=== PATIENT | male | born 1955 | race Caucasian/White ===

== ENCOUNTER 2017-03-21 02:10 | Emergency (ER) | payer SELFPAY ==
[~2017-03-21] VITALS: Ht 172.7 cm; Wt 76.2 kg
[2017-03-21 02:11] VITALS: BP 139/89
--- NOTE | 2017-03-21 02:50 | NUR ---
Patient discharged to home in stable condition. Written and verbal after care instructions given. Patient verbalizes understanding of instruction.PT ambulatory with a steady gait.
== END 2017-03-21 02:50 | disposition home or self-care (01) ==
LOC: ER 02:15
DX: T15.01XA Foreign body in cornea, right eye, initial encounter (principal); S00.211A Abrasion of right eyelid and periocular area, initial encounter; X58.XXXA Exposure to other specified factors, initial encounter; Y93.89 Activity, other specified; Y92.89 Other specified places as the place of occurrence of the external cause; Y99.8 Other external cause status
CPT/HCPCS: 65205; 99284; A4606; Z7610

== ENCOUNTER 2019-05-06 08:51 | Emergency (ER) | payer MEDICAID ==
[~2019-05-06] VITALS: Ht 190.5 cm; Wt 108.9 kg
--- NOTE | 2019-05-06 08:55 | NUR ---
PT BIB SELF C/O FOREARM LACERATION, PT IS AAOX4, NOT IN RESPIRATORY DISTRESS, HOOKED TO MONITOR, KEPT RESTED AND COMFORTABLE, WILL CONTINUE TO MONITOR.
--- NOTE | 2019-05-06 09:05 | NUR ---
SEEN AND EXAMINED BY .
[2019-05-06] MEDS ORDERED: TDAP [DIPH/PERTUSSIS/TET] 0.5 ML VIAL IM ONE ×2 (09:10→09:30)
--- NOTE | 2019-05-06 09:13 | NUR ---
SIDE SEAM TENDER AT BEDSIDE FOR XRAY.
--- NOTE | 2019-05-06 09:20 | NUR ---
WOUND CLEANING DONE.
[2019-05-06] MEDS ORDERED: LIDOCAINE 2%-EPI 1:100,000 30 ML VIAL ONE (09:22)
[2019-05-06] MEDS ORDERED: BACI/NEOM/POLY B OINT PKT 1 UDPKT PACKET TP ONE (09:30)
[2019-05-06] MEDS ORDERED: LIDOCAINE 2%-EPI 1:100,000 30 ML VIAL TP ONE (09:30)
--- NOTE | 2019-05-06 09:37 | NUR ---
SUTURING DONE BY .
--- NOTE | 2019-05-06 11:02 | NUR ---
Patient discharged to home in stable condition. Written and verbal after care instructions given. Patient verbalizes understanding of instruction.
[2019-05-06 11:03] VITALS: BP 133/84
== END 2019-05-06 11:04 | disposition home or self-care (01) ==
LOC: ER 08:53
DX: S51.812A Laceration without foreign body of left forearm, initial encounter (principal); F17.200 Nicotine dependence, unspecified, uncomplicated; R03.0 Elevated blood-pressure reading, without diagnosis of hypertension; W26.0XXA Contact with knife, initial encounter; Y93.89 Activity, other specified; Y92.89 Other specified places as the place of occurrence of the external cause; Y99.8 Other external cause status
CPT/HCPCS: 12001; 73090; 90471; 90715; 99283; 99406; A6403; J3490

== ENCOUNTER 2019-05-09 19:22 | Emergency (ER) | payer MEDICAID, OTHER ==
[~2019-05-09] VITALS: Ht 188 cm; Wt 103.0 kg
[2019-05-09 19:31] VITALS: BP 130/89
== END 2019-05-09 20:01 | disposition home or self-care (01) ==
LOC: ER 19:25
DX: S51.812D Laceration without foreign body of left forearm, subsequent encounter (principal); F17.200 Nicotine dependence, unspecified, uncomplicated; X58.XXXD Exposure to other specified factors, subsequent encounter